=== PATIENT | male | born 1990 | race Caucasian/White ===

== ENCOUNTER 2018-10-19 01:08 | Outpatient (CLI) ==
[2015-11-02 10:35] VITALS: BMI 27.1
== END 2018-10-19 01:20 | disposition short-term general hospital (02) ==
LOC: AMBL 01:08
PROVIDERS: ATTEND Internal Medicine Geriatric Medicine
DX: T65.91XA Toxic effect of unspecified substance, accidental (unintentional), initial encounter (principal); G25.2 Other specified forms of tremor; S61.419A Laceration without foreign body of unspecified hand, initial encounter; W22.8XXA Striking against or struck by other objects, initial encounter; F32.9 Major depressive disorder, single episode, unspecified